=== PATIENT | male | born 1970 | race Caucasian/White ===

== ENCOUNTER → 2020-09-12 | Day surgery (SDC) | payer OTHER ==
[~2020-09-12] MED LIST: LIPITOR 10MG TA10 MG PO; MOTRIN600 MG PO; NORCO 5-325 TA1 EACH PO; PROZAC20 MG PO; SINGULAIR10 MG PO; TOPIRAMATE50 MG PO; ZOFRAN4 MG PO
[2020-09-12 08:17] LABS: HCT 47.5 % (42.0-52.0); HGB 15.7 g/dl (13.2-18.0); MCHC 33.1 g/dL (32.0-36.0); MCV 87.8 fL (78.0-100.0); MPV 10.3 fL (6.0-9.5); RBC 5.41 M/uL (4.70-6.00); RDW 12.4 % (11.5-14.0); WBC 5.1 K/uL (4.0-10.5)
[2020-09-12 08:41] LABS: ALBUMIN 4.3 g/dL (3.4-5.0); BILIRUBIN - TOTAL 0.7 mg/dL (0.2-1.0); BUN/CREAT RATIO (CALC) 17.2 RATIO; CREATININE 0.87 mg/dL (0.67-1.17); GLOBULIN (CALCULATION) 3.1 g/dL; POTASSIUM 3.8 mmol/L (3.5-5.1); TOTAL PROTEIN 7.4 g/dL (6.4-8.2)
== END | disposition home or self-care (01) ==
LOC: FAS 07:25
PROVIDERS: Surgery
DX: Z12.11 Encounter for screening for malignant neoplasm of colon (principal); E78.00 Pure hypercholesterolemia, unspecified; F10.10 Alcohol abuse, uncomplicated; K21.9 Gastro-esophageal reflux disease without esophagitis; Z88.0 Allergy status to penicillin; Z79.899 Other long term (current) drug therapy; Z82.49 Family history of ischemic heart disease and other diseases of the circulatory system; Z80.3 Family history of malignant neoplasm of breast; Z83.3 Family history of diabetes mellitus; Z82.5 Family history of asthma and other chronic lower respiratory diseases; Z80.0 Family history of malignant neoplasm of digestive organs; Z87.891 Personal history of nicotine dependence
CPT/HCPCS: 36415; 80053; J2704; J7120

== ENCOUNTER 2021-03-13 20:36 | Emergency (ER) | payer OTHER | END 2021-03-14 03:10 | disposition home or self-care (01) | LOC: FER 20:36 | DX: M79.672 Pain in left foot (principal); M79.89 Other specified soft tissue disorders; W17.89XA Other fall from one level to another, initial encounter; W22.8XXA Striking against or struck by other objects, initial encounter | CPT/HCPCS: 73620 ==